=== PATIENT | female | born 1995 | race Caucasian/White ===

== ENCOUNTER 2019-05-21 16:23 | Emergency (ER) | payer MEDICAID, OTHER ==
[~2019-05-21] VITALS: Ht 175.3 cm; Wt 136.4 kg
[2019-05-21] MEDS ORDERED: NO HOME MEDS (17:01)
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
[2019-05-21 17:22] LABS: BASOPHILS % (AUTO) 0.4 % (0-1); EOSINOPHILS # (AUTO) 0.1 X10'3 (0-0.9); HEMATOCRIT 37.7 % (35.0-45.0); HEMOGLOBIN 12.8 g/dl (12.0-16.0); LYMPHOCYTES # (AUTO) 1.7 X10'3 (1.1-4.8); LYMPHOCYTES % (AUTO) 16.1 % (21-51); MEAN CORPUSCULAR HEMOGLOBIN 29.5 PG (27.0-31.0); MEAN CORPUSCULAR HGB CONC 33.9 g/dL (33.0-36.5); MEAN CORPUSCULAR VOLUME 86.9 FL (78-98); MEAN PLATELET VOLUME 8.8 FL (7.4-10.4); MONOCYTES # (AUTO) 0.4 X10'3 (0-0.9); MONOCYTES % (AUTO) 3.9 % (2-12); NEUTROPHILS # (AUTO) 8.2 X10'3 (1.8-7.7); NEUTROPHILS % (AUTO) 78.6 % (42-75); PLATELET COUNT 279 X10'3 (140-440); RED BLOOD COUNT 4.33 X10'6 (4.20-5.60); RED CELL DISTRIBUTION WIDTH 13.2 % (11.5-14.5); WHITE BLOOD COUNT 10.4 X10'3 (4.5-11.0)
[2019-05-21 17:23] LABS: URINE HCG NEGATIVE (NEG)
[2019-05-21 17:29] LABS: ALANINE AMINOTRANSFERASE 22 U/L (12-78); ALBUMIN 3.5 G/DL (3.4-5.0); ALBUMIN/GLOBULIN RATIO 0.8 (1.1-1.5); ALKALINE PHOSPHATASE 95 IU/L (46-116); ANION GAP 7 (8-16); ASPARTATE AMINO TRANSFERASE 16 U/L (10-37); BILIRUBIN,TOTAL 0.2 MG/DL (0.1-1.0); BLOOD UREA NITROGEN 14 MG/DL (7-18); BUN/CREATININE RATIO 21.9 (6.6-38.0); CALCIUM 9.3 MG/DL (8.5-10.1); CHLORIDE 106 MMOL/L (99-107); CREATININE 0.64 MG/DL (0.40-0.90); GLUCOSE 93 MG/DL (70-104); SODIUM 140 MMOL/L (135-145); TOTAL CARBON DIOXIDE 26.9 MMOL/L (24-32); TOTAL PROTEIN 7.9 G/DL (6.4-8.2); eGFR > 90 ML/MIN
[2019-05-21 17:29] LABS: CLARITY,URINE SLIGHTLY CLOUDY (Clear); COLOR,URINE YELLOW (Yellow); GLUCOSE, URINE NEGATIVE (Neg); KETONES,URINE NEGATIVE (Neg); LEUKOCYTE ESTERASE ,URINE TRACE (Neg); NITRITES, URINE NEGATIVE (Neg); OCCULT BLOOD,URINE TRACE-INTACT (Neg); PROTEIN,URINE NEGATIVE (Neg); UROBILINOGEN,URINE 0.2 E.U/dL (0.2-1.0)
[2019-05-21 17:35] LABS: URINE AMPHETAMINE SCREEN NEGATIVE (Neg); URINE BARBITUATE SCREEN NEGATIVE (Neg); URINE BENZODIAZEPINES SCREEN NEGATIVE (Neg); URINE CANNABINOID SCREEN POSITIVE (Neg); URINE COCAINE SCREEN NEGATIVE (Neg); URINE METHADONE SCREEN NEGATIVE (Neg); URINE OPIATE SCREEN NEGATIVE (Neg); URINE PHENCYCLIDINE SCREEN NEGATIVE (Neg)
[2019-05-21 17:36] LABS: UA COLLECTION TYPE CLN CATCH MIDSTREAM
[2019-05-21 17:38] LABS: BACTERIA,URINE 1+ /HPF (Neg); MUCUS STRANDS MANY /LPF (Neg); RBC,URINE 0-2 /HPF (0-2); SQUAMOUS EPITHELIAL CELL,UR MODERATE /LPF (FEW); WBC,URINE 50-100 /HPF (0-4)
[2019-05-21 17:39] LABS: ETHANOL < 0.010 GM/DL (0.0-0.010)
[2019-05-21] MEDS ORDERED: acetaminophen 325mg tablet PO ONE (18:10)
--- NOTE | 2019-05-21 18:20 | NUR ---
Faxed Packet to [facility].
--- NOTE | 2019-05-21 19:02 | NUR ---
Patient resting comfortably in bed at this time. She is updated on POC. Patient is denying SI/HI at this time and reports that she is feeling much more calm and clear than she was when she presented initially. Mother at bedside.
--- NOTE | 2019-05-21 20:10 | NUR ---
Patient appears to ble sleeping on her right side with even, unlabored breathing.
--- NOTE | 2019-05-21 20:51 | NUR ---
Patient continues to sleep.
--- NOTE | 2019-05-21 21:40 | NUR ---
Patient appears to sleep on her left side.
--- NOTE | 2019-05-21 22:27 | NUR ---
Patient sleeping on right side with even, unlabored breathing. Nurse to nurse given to [facility].
--- NOTE | 2019-05-22 | NUR ---
Patient continues to sleep supine.
--- NOTE | 2019-05-22 01:01 | NUR ---
Patient is sleeping supine.
--- NOTE | 2019-05-22 02:48 | NUR ---
Patient up to restroom. She requests a warm blanket and returns to bed.
--- NOTE | 2019-05-22 04:03 | NUR ---
Patient continues to sleep.
--- NOTE | 2019-05-22 05:20 | NUR ---
Patient is sleeping supine with even, unlabored breathing.
[2019-05-22 06:06] VITALS: BP 108/67
[2019-05-22] MEDS ORDERED: nitrofuran/nitrofuran macrocrysal 100 MG capsule PO ONE (08:55)
--- NOTE | 2019-05-22 10:00 | NUR ---
patient resting in bed
--- NOTE | 2019-05-22 12:00 | NUR ---
sitting up in bed
--- NOTE | 2019-05-22 12:39 | NUR ---
Patient picked up by [facility] to go to [facility].
== END 2019-05-22 12:35 ==
LOC: ER 16:23
DX: R45.851 Suicidal ideations (principal)
CPT/HCPCS: 36415; 80053; 80305; 80320; 81001; 81025; 84443; 85025; 99285